=== PATIENT | male | born 1950 | race Caucasian/White ===

== ENCOUNTER → 2022-03-02 | Outpatient (CLI) | payer OTHER ==
[~2022-03-02] MED LIST: AMITRIPTYLINE H25 MG PO; ATORVASTATIN CA40 MG PO; FINASTERIDE5 MG PO; LANTUS100 UNITS/ SQ; LISINOPRIL10 MG PO; LORAZEPAM1 MG PO; METOPROLOL SUCC50 MG PO; MIRTAZAPINE15 MG PO; NOVOLOG MI100 UNITS/ SQ; OMEPRAZOLE20 M1 PO; TAMSULOSIN HCL0.4 MG PO; TEMAZEPAM30 MG PO
== END ==
LOC: RAD 08:43
PROVIDERS: ATTEND Internal Medicine
DX: R01.1 Cardiac murmur, unspecified (principal)
CPT/HCPCS: 93306